=== PATIENT | female | born 1995 ===

== ENCOUNTER 2017-06-05 23:45 | Emergency (ER) | payer OTHER ==
[2017-06-06 00:50] VITALS: BP 150/84
[2017-06-06 02:06] LABS: Anion Gap 21 mmol/L; Blood Urea Nitrogen 9 mg/dL (7-17); Calcium 9.2 mg/dL (8.4-10.2); Carbon Dioxide 19 mmol/L (22-30); Chloride 103.4 mmol/L (98-107); Glucose 107 mg/dL (65-100); Sodium 139 mmol/L (137-145)
[2017-06-06 02:14] LABS: Basophils % (Auto) 0.4 % (0.0-1.8); Hematocrit 38.1 % (30.3-42.9); Hemoglobin 12.6 gm/dl (10.1-14.3); Mean Corpuscular HGB Conc 33 % (30-34); Mean Corpuscular Hemoglobin 26 pg (28-32); Mean Corpuscular Volume 79 fl (79-97); Platelet Count 257 K/mm3 (140-440); Red Blood Count 4.82 M/mm3 (3.65-5.03); Red Cell Distribution Width 15.8 % (13.2-15.2); White Blood Count 4.9 K/mm3 (4.5-11.0)
== END 2017-06-06 03:36 | disposition left against medical advice (07) ==
LOC: ED 23:45
DX: Z53.21 Procedure and treatment not carried out due to patient leaving prior to being seen by health care provider (principal)
CPT/HCPCS: 36415; 80048; 85025; G0480; 80320